=== PATIENT | male | born 1985 | race Hispanic/Latino ===

== ENCOUNTER 2019-08-03 16:58 | Emergency (ER) | payer SELFPAY ==
[2019-08-03 19:15] VITALS: BP 139/80
[2019-08-03] MEDS ORDERED: NORCO 5/325 PO ONE (19:47)
--- NOTE | 2019-08-03 19:47 | Emergency Department Report ---
ED ENT HPI - General Chief complaint: Dental/Oral Stated complaint: LFT SIDE TOOTHACHE/ABCESS PAIN Time Seen by Provider: 08/03/19 19:38 Source: patient Mode of arrival: Ambulatory Limitations: No Limitations - History of Present Illness Initial comments: This is a 34-year-old male who presents to the emergency room with dental pain on the left lower side #20 one day. Patient states he was having issues with teeth intermittently for the past year. He denies difficulty swallowing, sore throat, fever, or chills. MD complaint: tooth pain Onset/Timin -: days(s) Location: tooth # (20) Severity: severe Severity scale (0 -10): 10 Quality: constant, other (throbbing) Consistency: constant Improves with: none Worsens with: eating Context- Dental: history of dental caries, poor dental care Associated Symptoms: gum swelling, toothache. denies: fever, pain with swallowing, sore throat - Related Data Previous Rx's Medication Instructions Recorded Last Taken Type Amoxicillin [Trimox CAP] 500 mg PO BID #14 capsule 08/03/19 Unknown Rx Naproxen [Naprosyn] 500 mg PO TID PRN #20 tablet 08/03/19 Unknown Rx traMADol [Ultram 50 MG tab] 50 mg PO Q6HR PRN #10 tablet 08/03/19 Unknown Rx Allergies Allergy/AdvReac Type Severity Reaction Status Date / Time No Known Allergies Allergy Verified 08/03/19 17:00 ED Dental HPI - General Chief complaint: Dental/Oral Stated complaint: LFT SIDE TOOTHACHE/ABCESS PAIN Time Seen by Provider: 08/03/19 19:38 Source: patient Mode of arrival: Ambulatory Limitations: No Limitations - Related Data Previous Rx's Medication Instructions Recorded Last Taken Type Amoxicillin [Trimox CAP] 500 mg PO BID #14 capsule 08/03/19 Unknown Rx Naproxen [Naprosyn] 500 mg PO TID PRN #20 tablet 08/03/19 Unknown Rx traMADol [Ultram 50 MG tab] 50 mg PO Q6HR PRN #10 tablet 08/03/19 Unknown Rx Allergies Allergy/AdvReac Type Severity Reaction Status Date / Time No Known Allergies Allergy Verified 08/03/19 17:00 ED Review of Systems ROS: Stated complaint: LFT SIDE TOOTHACHE/ABCESS PAIN Other details as noted in HPI Constitutional: denies: chills, fever ENT: dental pain. denies: ear pain, throat pain Respiratory: denies: cough, shortness of breath, wheezing Cardiovascular: denies: chest pain, palpitations Gastrointestinal: denies: abdominal pain, nausea, diarrhea Skin: denies: rash, lesions Neurological: denies: headache, weakness, paresthesias Psychiatric: denies: anxiety, depression ED Past Medical Hx - Past Medical History Previous Medical History?: No Hx Psychiatric Treatment: Yes (bi-polar/anxiety/depression) - Surgical History Additional Surgical History: L shoulder surgery 2008 - Social History Smoking Status: Current Every Day Smoker Substance Use Type: None - Medications Home Medications: Home Medications Medication Instructions Recorded Confirmed Last Taken Type Amoxicillin [Trimox CAP] 500 mg PO BID #14 capsule 08/03/19 Unknown Rx Naproxen [Naprosyn] 500 mg PO TID PRN #20 tablet 08/03/19 Unknown Rx traMADol [Ultram 50 MG tab] 50 mg PO Q6HR PRN #10 tablet 08/03/19 Unknown Rx ED Physical Exam - General Limitations: No Limitations General appearance: alert, in no apparent distress - ENT ENT exam: Present: normal orophraynx, mucous membranes moist, other (#20 partial tooth with dark brown dental caries lateral tooth, gingival swelling, tenderness, ) - Neck Neck exam: Present: normal inspection. Absent: lymphadenopathy - Respiratory Respiratory exam: Present: normal lung sounds bilaterally. Absent: respiratory distress - Cardiovascular Cardiovascular Exam: Present: regular rate, normal rhythm. Absent: systolic murmur, diastolic murmur, rubs, gallop - Neurological Exam Neurological exam: Present: alert, oriented X3 - Psychiatric Psychiatric exam: Present: normal affect, normal mood - Skin Skin exam: Present: warm, dry, intact, normal color. Absent: rash ED Course Vital Signs 08/03/19 19:13 Temperature 98.5 F Pulse Rate 110 H Respiratory 18 Rate Blood Pressure 139/80 O2 Sat by Pulse 98 Oximetry ED Medical Decision Making - Medical Decision Making Patient is stable and was examined by me. Given norco once in ER. Susceptible of dental dental caries #20 with partial tooth present, mild gingival swelling, no signs of abscess or facial swelling. Start tramadol, amoxicillin, and Naprosyn. Discussed plan with patient. He agreed with ER plan. Discharged home stable. Follow up with dentist from referral list. Critical care attestation.: If time is entered above; I have spent that time in minutes in the direct care of this critically ill patient, excluding procedure time. ED Disposition Clinical Impression: Dental caries, Pain, dental Fracture of tooth Qualifiers: Encounter type: initial encounter Fracture type: closed Qualified Code(s): S02. 5XXA - Fracture of tooth (traumatic), initial encounter for closed fracture Disposition: TO HOME OR SELFCARE Is pt being admited?: No Condition: Stable Instructions: Dental Caries (ED), Toothache (ED) Additional Instructions: Complete all days of antibiotics as prescribed for 7 days. Follow up with Dentist from the list of provided in 24-72 hours. Prescriptions: Naproxen [Naprosyn] 500 mg PO TID PRN #20 tablet PRN Reason: Pain, Moderate (4-6) Amoxicillin [Trimox CAP] 500 mg PO BID #14 capsule traMADol [Ultram 50 MG tab] 50 mg PO Q6HR PRN #10 tablet PRN Reason: Pain Referrals: [facility] [Outside] - 3-5 Days [facility] [Outside] - 3-5 Days [facility] [Outside] - 3-5 Days Forms: Work/School Release Form(ED) Time of Disposition: 20:07
== END 2019-08-03 20:32 | disposition home or self-care (01) ==
LOC: ED 16:58
DX: S02.5XXA Fracture of tooth (traumatic), initial encounter for closed fracture (principal); K02.9 Dental caries, unspecified; F31.9 Bipolar disorder, unspecified; F17.200 Nicotine dependence, unspecified, uncomplicated; X58.XXXA Exposure to other specified factors, initial encounter; Y93.9 Activity, unspecified; Y92.89 Other specified places as the place of occurrence of the external cause; Y99.8 Other external cause status
CPT/HCPCS: 99282

== ENCOUNTER 2019-08-29 20:06 | Emergency (ER) | payer SELFPAY ==
[2019-08-29 20:40] VITALS: BP 127/71
--- NOTE | 2019-08-29 21:35 | Event Note ---
ED Screening Note Date of service: 08/29/19 Time: 21:34 ED Screening Note: 34 y/o male comes in for 3 days history of left lower leg swelling and pain with redness. This initial assessment/diagnostic orders/clinical plan/treatment(s) is/are subject to change based on patients health status, clinical progression and re- assessment by fellow clinical providers in the ED. Further treatment and workup at subsequent clinical providers discretion. Patient/guardian urged not to elope from the ED as their condition may be serious if not clinically assessed and managed. Initial orders include:
[2019-08-29] MEDS ORDERED: SODIUM CHLORIDE 0.9% 1000 ML 1,000 ML IV ONE (22:36)
[2019-08-29] MEDS ORDERED: MORPHINE 4 MG/1 ML INJ IV ONE (22:36)
[2019-08-29 23:13] LABS: Basophils % (Auto) 0.3 % (0.0-1.8); Eosinophils # (Auto) 0.1 K/mm3 (0.0-0.4); Eosinophils % (Auto) 1.4 % (0.0-4.3); Hematocrit 39.4 % (35.5-45.6); Hemoglobin 13.5 gm/dl (11.8-15.2); Lymphocytes # (Auto) 1.3 K/mm3 (1.2-5.4); Lymphocytes % (Auto) 12.6 % (13.4-35.0); Mean Corpuscular HGB Conc 34 % (32-34); Mean Corpuscular Volume 92 fl (84-94); Monocytes # (Auto) 1.6 K/mm3 (0.0-0.8); Monocytes % (Auto) 15.1 % (0.0-7.3); Platelet Count 237 K/mm3 (140-440); Red Blood Count 4.29 M/mm3 (3.65-5.03); Red Cell Distribution Width 13.9 % (13.2-15.2)
[2019-08-29] MEDS ORDERED: TETANUS,DIPH,PERTUSS(ACELL) VACCINE 0.5 ML SYRINGE IM ONE (23:25)
--- NOTE | 2019-08-29 23:32 | Emergency Department Report ---
- General Chief complaint: Extremity Problem,Nontraumatic Stated complaint: LEFT LEG PAIN Time Seen by Provider: 08/29/19 21:27 Source: patient Mode of arrival: Ambulatory Limitations: No Limitations - History of Present Illness Initial comments: This is a 34-year-old male nontoxic, well nourished in appearance, no acute signs of distress presents to the ED with c/o of redness and pain to the left lower leg. Patient stated that 3 days ago was bitten by something and redness and pain has increased since then. Patient denies any pus or drainage. Patient denies any fever, chills, nausea, vomiting, chest pain, shortness of breath, headache or stiff neck. Patient denies any allergies or significant past medical history. Denies being UTD with tetanus. MD complaint: insect bite/sting -: days(s) (3) Tetanus Up to Date: no Location: LLE Severity: mild Severity scale (0 -10): 8 Quality: aching Consistency: constant Improves with: none Worsens with: none Context: none Associated symptoms: denies other symptoms - Related Data Previous Rx's Medication Instructions Recorded Last Taken Type Amoxicillin [Trimox CAP] 500 mg PO BID #14 capsule 08/03/19 Unknown Rx Naproxen [Naprosyn] 500 mg PO TID PRN #20 tablet 08/03/19 Unknown Rx traMADoL [Ultram 50 MG tab] 50 mg PO Q6HR PRN #10 tablet 08/03/19 Unknown Rx Acetaminophen/Codeine [Tylenol 1 tab PO Q6H PRN #12 tab 08/30/19 Unknown Rx /Codeine # 3 tab] Clindamycin [Clindamycin CAP] 300 mg PO Q6H #28 capsule 08/30/19 Unknown Rx Allergies Allergy/AdvReac Type Severity Reaction Status Date / Time No Known Allergies Allergy Verified 08/03/19 17:00 Abscess Boil HPI - HPI Chief Complaint: Extremity Problem,Nontraumatic Stated Complaint: LEFT LEG PAIN Time Seen by Provider: 08/29/19 21:27 Home Medications: Previous Rx's Medication Instructions Recorded Last Taken Type Amoxicillin [Trimox CAP] 500 mg PO BID #14 capsule 08/03/19 Unknown Rx Naproxen [Naprosyn] 500 mg PO TID PRN #20 tablet 08/03/19 Unknown Rx traMADoL [Ultram 50 MG tab] 50 mg PO Q6HR PRN #10 tablet 08/03/19 Unknown Rx Acetaminophen/Codeine [Tylenol 1 tab PO Q6H PRN #12 tab 08/30/19 Unknown Rx /Codeine # 3 tab] Clindamycin [Clindamycin CAP] 300 mg PO Q6H #28 capsule 08/30/19 Unknown Rx Allergies/Adverse Reactions: Allergies Allergy/AdvReac Type Severity Reaction Status Date / Time No Known Allergies Allergy Verified 08/03/19 17:00 ED Review of Systems ROS: Stated complaint: LEFT LEG PAIN Other details as noted in HPI Constitutional: denies: chills, fever Eyes: denies: eye pain, eye discharge, vision change ENT: denies: ear pain, throat pain Respiratory: denies: cough, shortness of breath, wheezing Cardiovascular: denies: chest pain, palpitations Endocrine: no symptoms reported Gastrointestinal: denies: abdominal pain, nausea, diarrhea Genitourinary: denies: urgency, dysuria Musculoskeletal: denies: back pain, joint swelling, arthralgia Skin: denies: rash, lesions Neurological: denies: headache, weakness, paresthesias Psychiatric: denies: anxiety, depression Hematological/Lymphatic: denies: easy bleeding, easy bruising ED Past Medical Hx - Past Medical History Previous Medical History?: Yes Hx Psychiatric Treatment: Yes (bi-polar/anxiety/depression) - Surgical History Past Surgical History?: Yes Additional Surgical History: L shoulder surgery 2008 - Social History Smoking Status: Current Every Day Smoker Substance Use Type: Alcohol - Medications Home Medications: Home Medications Medication Instructions Recorded Confirmed Last Taken Type Amoxicillin [Trimox CAP] 500 mg PO BID #14 capsule 08/03/19 Unknown Rx Naproxen [Naprosyn] 500 mg PO TID PRN #20 tablet 08/03/19 Unknown Rx traMADoL [Ultram 50 MG tab] 50 mg PO Q6HR PRN #10 tablet 08/03/19 Unknown Rx Acetaminophen/Codeine [Tylenol 1 tab PO Q6H PRN #12 tab 08/30/19 Unknown Rx /Codeine # 3 tab] Clindamycin [Clindamycin CAP] 300 mg PO Q6H #28 capsule 08/30/19 Unknown Rx ED Physical Exam - General Limitations: No Limitations General appearance: alert, in no apparent distress - Head Head exam: Present: atraumatic, normocephalic - Neck Neck exam: Present: normal inspection, full ROM. Absent: tenderness, meningismus, lymphadenopathy - Extremities Exam Extremities exam: Present: normal inspection, full ROM, tenderness, normal capillary refill. Absent: joint swelling, calf tenderness - Expanded Lower Extremity Exam Left Hip exam: Present: normal inspection, full ROM. Absent: tenderness, swelling Upper Leg exam: Present: normal inspection, full ROM. Absent: tenderness, swelling Knee exam: Present: normal inspection, full ROM. Absent: tenderness, swelling Lower Leg exam: Present: normal inspection, full ROM, tenderness, swelling, erythema. Absent: abrasion, laceration, ecchymosis, deformity, crepidus, dislocation, palpable cord, Cady's sign Ankle exam: Present: normal inspection, full ROM. Absent: tenderness, swelling Foot/Toe exam: Present: normal inspection, full ROM. Absent: tenderness, swelling Neuro vascular tendon exam: Present: no vascular compromise Gait: Positive: observed and normal 1 - small puncture wound of unknown source 2 - Erythema with tenderness to touch and warm to touch - Back Exam Back exam: Present: normal inspection, full ROM. Absent: tenderness, CVA tenderness (R), CVA tenderness (L), muscle spasm, paraspinal tenderness, vertebral tenderness, rash noted - Neurological Exam Neurological exam: Present: alert, oriented X3, normal gait - Psychiatric Psychiatric exam: Present: normal affect, normal mood - Skin Skin exam: Present: warm, dry, intact, normal color. Absent: rash ED Course Vital Signs 08/29/19 20:38 Temperature 99.1 F Pulse Rate 94 H Respiratory 18 Rate Blood Pressure 127/71 [Right] O2 Sat by Pulse 94 Oximetry - Reevaluation(s) Reevaluation #1: 08/29/19 23:30 Patient is speaking in full sentences with no signs of distress noted. ED Medical Decision Making - Lab Data Result diagrams: 08/29/19 22:47 08/29/19 22:47 - Medical Decision Making This is a 34-year-old male that presents with cellulitis. Patient is stable and was examined by me. There is no induration, fluctuance. Labs are unremarkable. CT with contrast obtained and dictated by radiologist within normal limits. Patient is notified of the CT results with no questions noted by the patient. No signs of abscess formation. The area has been outlined with a permanent marker and patient was instructed to observe symptoms of increased redness or swelling and to return to the ER if this does occur. Patient received morphine, 1 L normal saline and clindamycin. Stated that a member will try patient home after discharge due to possible drowsiness. Patient did receive a tetanus booster in the ER. Patient was referred to Follow-up with a primary care doctor in 3-5 days or if symptoms worsen and continue return to emergency room as soon as possible. At time of discharge, the patient does not seem toxic or ill in appearance. No acute signs of distress noted. Patient agrees to discharge treatment plan of care. No further questions noted by the patient. Critical care attestation.: If time is entered above; I have spent that time in minutes in the direct care of this critically ill patient, excluding procedure time. ED Disposition Clinical Impression: Cellulitis Qualifiers: Site of cellulitis: extremity Site of cellulitis of extremity: lower extremity Laterality: left Qualified Code(s): L03.116 - Cellulitis of left lower limb Disposition: DC-01 TO HOME OR SELFCARE Is pt being admited?: No Does the pt Need Aspirin: No Condition: Stable Instructions: Cellulitis (ED), Acetaminophen/Codeine (By mouth) Additional Instructions: Follow-up with a primary care doctor in 3-5 days or if symptoms worsen and continue return to emergency room as soon as possible. Do not operate any machinery while taking Tylenol with codeine as this may cause drowsiness. Prescriptions: Clindamycin [Clindamycin CAP] 300 mg PO Q6H #28 capsule Acetaminophen/Codeine [Tylenol /Codeine # 3 tab] 1 tab PO Q6H PRN #12 tab PRN Reason: pain Referrals: PRIMARY MD SHREYAS [Primary Care Provider] - 3-5 Days TERESO BAHENA MD [Staff Physician] - 3-5 Days [facility] [Outside] - 3-5 Days [facility] [Outside] - 3-5 Days Forms: Work/School Release Form(ED)
[2019-08-29 23:34] LABS: BUN/Creatinine Ratio 24; Blood Urea Nitrogen 17 mg/dL (9-20); Calcium 9.1 mg/dL (8.4-10.2); Hemolysis Index 55
--- NOTE | 2019-08-30 01:16 | Cat Scan Report ---
CT lower extremity LT w con INDICATION: left leg redness and swelling. TECHNIQUE: All CT scans at this location are performed using the following dose modulation technique: Automated exposure control. CONTRAST: Omnipaque 300, 100 cc IV injection. COMPARISON: None available. FINDINGS: Negative for bony injury or destruction. There is soft tissue swelling greatest at the ankl e laterally. Negative for localized fluid collection or skin breakdown. IMPRESSION: Soft tissue edema left lower extremity greatest at the ankle. Negative for abscess or ost eomyelitis. Signer Name: Portillo Monsivais MD Signed: 08/30/2019 1:11 AM Workstation Name: [id number]
[2019-08-30] MEDS ORDERED: ACETAMINOPHEN W/CODEINE 300-30 MG TAB PO ONE (02:08)
[2019-08-30] MEDS ORDERED: ACETAMINOPHEN W/CODEINE 300-30 MG TAB ONE (02:10)
== END 2019-08-30 02:15 | disposition home or self-care (01) ==
LOC: ED 20:06
DX: L03.116 Cellulitis of left lower limb (principal); F31.9 Bipolar disorder, unspecified; F17.200 Nicotine dependence, unspecified, uncomplicated; F41.9 Anxiety disorder, unspecified
CPT/HCPCS: 36415; 73701; 80048; 85025; 90471; 90715; 96365; 96375; 99284; J2270; J7030; Q9967

== ENCOUNTER 2019-09-02 04:30 | Emergency (ER) | payer SELFPAY ==
[2019-09-02 04:38] VITALS: BP 146/82
[2019-09-02] MEDS ORDERED: IBUPROFEN 800 MG TAB PO ONE (08:19)
[2019-09-02] MEDS ORDERED: cephALEXin 500 MG CAP PO ONE (08:19)
[2019-09-02] MEDS ORDERED: SULFAMETHOXAZOLE/TRIMETHOPRIM 800/160MG DS TAB PO ONE (08:19)
--- NOTE | 2019-09-02 08:27 | Emergency Department Report ---
- General Chief complaint: Extremity Injury, Lower Stated complaint: LEFT FOOT PAIN Time Seen by Provider: 09/02/19 08:17 Source: patient Mode of arrival: Ambulatory Limitations: No Limitations - History of Present Illness Initial comments: Mr. Kathleen is a 34 yo male with hx of anxiety, depression, bipolar disorder who presents with left leg cellulitis. Recently evaluatied3 days ago for same. Unable to obtain the antibiotics. According to EMR prescribed Clindamycin and Tylenol #3. Has left leg redness swelling pain with abscess. MD complaint: abscess/boil -: Gradual, days(s) (4) Severity: moderate Quality: aching Consistency: constant Improves with: none Worsens with: none Context: recent illness, other (unable to afford antibiotics) Associated symptoms: denies other symptoms - Related Data Previous Rx's Medication Instructions Recorded Last Taken Type Amoxicillin [Trimox CAP] 500 mg PO BID #14 capsule 08/03/19 Unknown Rx Naproxen [Naprosyn] 500 mg PO TID PRN #20 tablet 08/03/19 Unknown Rx traMADoL [Ultram 50 MG tab] 50 mg PO Q6HR PRN #10 tablet 08/03/19 Unknown Rx Acetaminophen/Codeine [Tylenol 1 tab PO Q6H PRN #12 tab 08/30/19 Unknown Rx /Codeine # 3 tab] Clindamycin [Clindamycin CAP] 300 mg PO Q6H #28 capsule 08/30/19 Unknown Rx Sulfamethoxazole/Trimethoprim 1 each PO BID 10 Days #20 tablet 09/02/19 Unknown Rx [Bactrim DS TAB] cephALEXin [Keflex] 500 mg PO QID 10 Days #40 capsule 09/02/19 Unknown Rx Allergies Allergy/AdvReac Type Severity Reaction Status Date / Time No Known Allergies Allergy Verified 08/03/19 17:00 Abscess Boil HPI - HPI Chief Complaint: Extremity Injury, Lower Stated Complaint: LEFT FOOT PAIN Time Seen by Provider: 09/02/19 08:17 Home Medications: Previous Rx's Medication Instructions Recorded Last Taken Type Amoxicillin [Trimox CAP] 500 mg PO BID #14 capsule 08/03/19 Unknown Rx Naproxen [Naprosyn] 500 mg PO TID PRN #20 tablet 08/03/19 Unknown Rx traMADoL [Ultram 50 MG tab] 50 mg PO Q6HR PRN #10 tablet 08/03/19 Unknown Rx Acetaminophen/Codeine [Tylenol 1 tab PO Q6H PRN #12 tab 08/30/19 Unknown Rx /Codeine # 3 tab] Clindamycin [Clindamycin CAP] 300 mg PO Q6H #28 capsule 08/30/19 Unknown Rx Sulfamethoxazole/Trimethoprim 1 each PO BID 10 Days #20 tablet 09/02/19 Unknown Rx [Bactrim DS TAB] cephALEXin [Keflex] 500 mg PO QID 10 Days #40 capsule 09/02/19 Unknown Rx Allergies/Adverse Reactions: Allergies Allergy/AdvReac Type Severity Reaction Status Date / Time No Known Allergies Allergy Verified 08/03/19 17:00 ED Review of Systems ROS: Stated complaint: LEFT FOOT PAIN Other details as noted in HPI Constitutional: denies: fever, malaise Gastrointestinal: denies: abdominal pain, nausea Genitourinary: denies: as per HPI Skin: rash, lesions, change in color ED Past Medical Hx - Past Medical History Previous Medical History?: Yes Hx Psychiatric Treatment: Yes (bi-polar/anxiety/depression) - Surgical History Past Surgical History?: Yes Additional Surgical History: L shoulder surgery 2008 - Social History Smoking Status: Current Every Day Smoker Substance Use Type: Alcohol - Medications Home Medications: Home Medications Medication Instructions Recorded Confirmed Last Taken Type Amoxicillin [Trimox CAP] 500 mg PO BID #14 capsule 08/03/19 Unknown Rx Naproxen [Naprosyn] 500 mg PO TID PRN #20 tablet 08/03/19 Unknown Rx traMADoL [Ultram 50 MG tab] 50 mg PO Q6HR PRN #10 tablet 08/03/19 Unknown Rx Acetaminophen/Codeine [Tylenol 1 tab PO Q6H PRN #12 tab 08/30/19 Unknown Rx /Codeine # 3 tab] Clindamycin [Clindamycin CAP] 300 mg PO Q6H #28 capsule 08/30/19 Unknown Rx Sulfamethoxazole/Trimethoprim 1 each PO BID 10 Days #20 tablet 09/02/19 Unknown Rx [Bactrim DS TAB] cephALEXin [Keflex] 500 mg PO QID 10 Days #40 capsule 09/02/19 Unknown Rx ED Physical Exam - General Limitations: No Limitations General appearance: alert, appears intoxicated - Head Head exam: Present: atraumatic, normocephalic - Eye Eye exam: Present: normal appearance. Absent: scleral icterus, conjunctival injection - ENT ENT exam: Present: mucous membranes moist - Neck Neck exam: Present: normal inspection - Respiratory Respiratory exam: Absent: respiratory distress - Extremities Exam Extremities exam: Present: other (left lower leg 15 cm of erythema with central draining abscess which is flat without underlying fluctuance) - Neurological Exam Neurological exam: Present: alert, oriented X3 - Psychiatric Psychiatric exam: Present: normal affect, normal mood ED Course Vital Signs 09/02/19 04:36 Temperature 98.7 F Pulse Rate 119 H Respiratory 20 Rate Blood Pressure 146/82 O2 Sat by Pulse 100 Oximetry ED Medical Decision Making - Medical Decision Making Left leg cellulitis abscess: Changed prescription to affordable medications bactrim and keflex Critical care attestation.: If time is entered above; I have spent that time in minutes in the direct care of this critically ill patient, excluding procedure time. ED Disposition Clinical Impression: Cellulitis, Cellulitis and abscess of left leg Disposition: DC-01 TO HOME OR SELFCARE Is pt being admited?: No Does the pt Need Aspirin: No Condition: Stable Instructions: Cellulitis (ED), Abscess (ED) Prescriptions: Sulfamethoxazole/Trimethoprim [Bactrim DS TAB] 1 each PO BID 10 Days #20 tablet cephALEXin [Keflex] 500 mg PO QID 10 Days #40 capsule Referrals: [facility] [Outside] - 3-5 Days
== END 2019-09-02 08:40 | disposition home or self-care (01) ==
LOC: ED 04:30
DX: L03.116 Cellulitis of left lower limb (principal); L02.416 Cutaneous abscess of left lower limb; F31.9 Bipolar disorder, unspecified; F41.9 Anxiety disorder, unspecified; F17.200 Nicotine dependence, unspecified, uncomplicated; Z79.899 Other long term (current) drug therapy

== ENCOUNTER 2020-11-28 10:25 | Inpatient (IN) | payer OTHER ==
[2020-11-28] MEDS ORDERED: SODIUM CHLORIDE 0.9% 1000 ML 1,000 ML ONE (10:50)
[2020-11-28] MEDS ORDERED: SODIUM CHLORIDE 0.9% 1000 ML IV SOLN IV ONE (10:52)
[2020-11-28] MEDS ORDERED: cefTRIAXone/NS 2 GM/100 ML 2 GM/100 ML BAG IV ONE (10:53)
[2020-11-28] MEDS ORDERED: AZITHROMYCIN/NS 500 MG/250 ML 500 MG/250 ML BAG IV ONE (10:53)
--- NOTE | 2020-11-28 11:00 | Emergency Department Report ---
ED Altered Mental Status HPI - General Chief Complaint: Overdose Stated Complaint: OPIATES OD PUI?: No Time Seen by Provider: 11/28/20 10:49 Source: EMS Mode of arrival: Stretcher Limitations: Altered Mental Status - History of Present Illness Initial Comments: Chief complaint: Found down HPI: This is a 35-year-old male with history of bipolar disorder and generalized anxiety disorder who was found in a barn unresponsive. Patient became combative after he received naloxone per paramedics. He required 5 mg of Versed for se dation. Patient is drowsy lethargic sedated. He does answer questions. He is able to state his name. History obtained from electronic medical record. I unsuccessfully attempted to contact next of kin listed in the electronic medical record. MD Complaint: altered mental status, decreased responsiveness -: unknown Severity: severe Context: other (Previously documented alcohol abuse) - Related Data Previous Rx's Medication Instructions Recorded Last Taken Type Amoxicillin [Trimox CAP] 500 mg PO BID #14 capsule 08/03/19 Unknown Rx Naproxen [Naprosyn] 500 mg PO TID PRN #20 tablet 08/03/19 Unknown Rx traMADoL [Ultram 50 MG tab] 50 mg PO Q6HR PRN #10 tablet 08/03/19 Unknown Rx Acetaminophen/Codeine [Tylenol 1 tab PO Q6H PRN #12 tab 08/30/19 Unknown Rx /Codeine # 3 tab] Clindamycin [Clindamycin CAP] 300 mg PO Q6H #28 capsule 08/30/19 Unknown Rx Sulfamethoxazole/Trimethoprim 1 each PO BID 10 Days #20 tablet 09/02/19 Unknown Rx [Bactrim DS TAB] cephALEXin [Keflex] 500 mg PO QID 10 Days #40 capsule 09/02/19 Unknown Rx Allergies Allergy/AdvReac Type Severity Reaction Status Date / Time No Known Allergies Allergy Verified 08/03/19 17:00 ED Review of Systems ROS: Stated complaint: OPIATES OD Other details as noted in HPI Comment: Unobtainable due to pts medical conditions (Altered mental status, sedated) ED Past Medical Hx - Past Medical History Previous Medical History?: Yes Hx Psychiatric Treatment: Yes (bi-polar/anxiety/depression) - Surgical History Past Surgical History?: Yes Additional Surgical History: L shoulder surgery 2008 - Social History Smoking Status: Unknown if ever smoked Substance Use Type: Alcohol - Medications Home Medications: Home Medications Medication Instructions Recorded Confirmed Last Taken Type Amoxicillin [Trimox CAP] 500 mg PO BID #14 capsule 08/03/19 Unknown Rx Naproxen [Naprosyn] 500 mg PO TID PRN #20 tablet 08/03/19 Unknown Rx traMADoL [Ultram 50 MG tab] 50 mg PO Q6HR PRN #10 tablet 08/03/19 Unknown Rx Acetaminophen/Codeine [Tylenol 1 tab PO Q6H PRN #12 tab 08/30/19 Unknown Rx /Codeine # 3 tab] Clindamycin [Clindamycin CAP] 300 mg PO Q6H #28 capsule 08/30/19 Unknown Rx Sulfamethoxazole/Trimethoprim 1 each PO BID 10 Days #20 tablet 09/02/19 Unknown Rx [Bactrim DS TAB] cephALEXin [Keflex] 500 mg PO QID 10 Days #40 capsule 09/02/19 Unknown Rx ED Physical Exam - General Limitations: Altered Mental Status General appearance: lethargic, other (Attempting to answer questions unintelligibly slurred speech as if intoxicated) - Head Head exam: Present: atraumatic, normocephalic - Eye Eye exam: Present: normal appearance - ENT ENT exam: Present: mucous membranes moist - Neck Neck exam: Present: normal inspection, full ROM - Respiratory Respiratory exam: Present: normal lung sounds bilaterally. Absent: respiratory distress, wheezes, rales, rhonchi - Cardiovascular Cardiovascular Exam: Present: normal rhythm, tachycardia, normal heart sounds. Absent: systolic murmur, diastolic murmur, rubs, gallop - GI/Abdominal GI/Abdominal exam: Present: soft, normal bowel sounds. Absent: distended, t enderness, guarding, rebound - Rectal Rectal exam: Present: deferred - Extremities Exam Extremities exam: Present: normal inspection - Neurological Exam Neurological exam: Present: other (Oriented to name sedated) - Psychiatric Psychiatric exam: Present: depressed - Skin Skin exam: Present: dry, intact, normal color, other (Cool to touch). Absent: rash ED Course Vital Signs 11/28/20 10:51 Temperature 94.9 F L Pulse Rate 123 H Respiratory 15 Rate Blood Pressure 131/91 [Left] O2 Sat by Pulse 89 Oximetry - Reevaluation(s) Reevaluation #1: 11/28/20 12:01 I reassessed patient. Patient has persistent tachycardia. Patient is sleeping with his mouth closed. Nonrebreather in place. Oxygen saturation 97% - Lab Data Result diagrams: 11/28/20 11:12 11/28/20 12:33 Lab Results 11/28/20 11/28/20 11/28/20 Range/Units 11:12 11:12 11:12 WBC 14.9 H (4.5-11.0) K/mm3 RBC 4.74 (3.65-5.03) M/mm3 Hgb 14.9 (11.8-15.2) gm/dl Hct 43.9 (35.5-45.6) % MCV 93 (84-94) fl MCH 32 (28-32) pg MCHC 34 (32-34) % RDW 12.9 L (13.2-15.2) % Plt Count 306 (140-440) K/mm3 Lymph % (Auto) 6.3 L (13.4-35.0) % [place] % (Auto) 6.6 (0.0-7.3) % Eos % (Auto) 1.2 (0.0-4.3) % Baso % (Auto) 0.4 (0.0-1.8) % Lymph # (Auto) 0.9 L (1.2-5.4) K/mm3 [place] # (Auto) 1.0 H (0.0-0.8) K/mm3 Eos # (Auto) 0.2 (0.0-0.4) K/mm3 Baso # (Auto) 0.1 (0.0-0.1) K/mm3 Seg Neutrophils % 85.5 H (40.0-70.0) % Seg Neutrophils # 12.7 H (1.8-7.7) K/mm3 D-Dimer 1402.59 H (0-234) ng/mlDDU ABG pH (7.350-7.450) pH Units ABG pCO2 mm Hg ABG pO2 (80.0-90.0) mm Hg ABG HCO3 (20.0-26.0) mmol/L ABG O2 Saturation (95.0-99.0) % ABG O2 Content (0.0-44) ABG Base Excess (-2.0-3.0) mmol/L ABG Hemoglobin (14.0-18.0) gm/dl ABG Carboxyhemoglobin (0.0-5.0) % ABG Methemoglobin (0.0-1.5) % Oxyhemoglobin (95.0-99.0) % FiO2 % Sodium 141 (137-145) mmol/L Potassium 3.7 (3.6-5.0) mmol/L Chloride 108.0 H (98-107) mmol/L Carbon Dioxide 25 (22-30) mmol/L Anion Gap 12 mmol/L BUN 15 (9-20) mg/dL Creatinine 1.0 (0.8-1.3) mg/dL Estimated GFR > 60 ml/min BUN/Creatinine Ratio 15 % Glucose 161 H (75-100) mg/dL Lactic Acid (0.7-2.0) mmol/L Calcium 8.1 L (8.4-10.2) mg/dL Ferritin (30.0-300.0) ng/mL Total Bilirubin 0.40 (0.1-1.2) mg/dL AST 56 H (5-40) units/L ALT 73 H (7-56) units/L Alkaline Phosphatase 92 (35-129) units/L Lactate Dehydrogenase (91-180) units/L Total Creatine Kinase (55-170) units/L Troponin T < 0.010 (0.00-0.029) ng/mL C-Reactive Protein (0.00-1.30) mg/dL NT-Pro-B Natriuret Pep (0-450) pg/mL Total Protein 6.5 (6.3-8.2) g/dL Albumin 4.0 (3.9-5) g/dL Albumin/Globulin Ratio 1.6 % Salicylates (2.8-20.0) mg/dL Acetaminophen (10.0-30.0) ug/mL 11/28/20 11/28/20 11/28/20 Range/Units 11:12 11:12 11:12 WBC (4.5-11.0) K/mm3 RBC (3.65-5.03) M/mm3 Hgb (11.8-15.2) gm/dl Hct (35.5-45.6) % MCV (84-94) fl MCH (28-32) pg MCHC (32-34) % RDW (13.2-15.2) % Plt Count (140-440) K/mm3 Lymph % (Auto) (13.4-35.0) % Liberty % (Auto) (0.0-7.3) % Eos % (Auto) (0.0-4.3) % Baso % (Auto) (0.0-1.8) % Lymph # (Auto) (1.2-5.4) K/mm3 [place] # (Auto) (0.0-0.8) K/mm3 Eos # (Auto) (0.0-0.4) K/mm3 Baso # (Auto) (0.0-0.1) K/mm3 Seg Neutrophils % (40.0-70.0) % Seg Neutrophils # (1.8-7.7) K/mm3 D-Dimer (0-234) ng/mlDDU ABG pH (7.350-7.450) pH Units ABG pCO2 mm Hg ABG pO2 (80.0-90.0) mm Hg ABG HCO3 (20.0-26.0) mmol/L ABG O2 Saturation (95.0-99.0) % ABG O2 Content (0.0-44) ABG Base Excess (-2.0-3.0) mmol/L ABG Hemoglobin (14.0-18.0) gm/dl ABG Carboxyhemoglobin (0.0-5.0) % ABG Methemoglobin (0.0-1.5) % Oxyhemoglobin (95.0-99.0) % FiO2 % Sodium (137-145) mmol/L Potassium (3.6-5.0) mmol/L Chloride (98-107) mmol/L Carbon Dioxide (22-30) mmol/L Anion Gap mmol/L BUN (9-20) mg/dL Creatinine (0.8-1.3) mg/dL Estimated GFR ml/min BUN/Creatinine Ratio % Glucose (75-100) mg/dL Lactic Acid 2.00 (0.7-2.0) mmol/L Calcium (8.4-10.2) mg/dL Ferritin (30.0-300.0) ng/mL Total Bilirubin (0.1-1.2) mg/dL AST (5-40) units/L ALT (7-56) units/L Alkaline Phosphatase (35-129) units/L Lactate Dehydrogenase (91-180) units/L Total Creatine Kinase (55-170) units/L Troponin T (0.00-0.029) ng/mL C-Reactive Protein (0.00-1.30) mg/dL NT-Pro-B Natriuret Pep (0-450) pg/mL Total Protein (6.3-8.2) g/dL Albumin (3.9-5) g/dL Albumin/Globulin Ratio % Salicylates < 0.3 L (2.8-20.0) mg/dL Acetaminophen 5.0 L (10.0-30.0) ug/mL 11/28/20 11/28/20 11/28/20 Range/Units 11:12 12:11 12:33 WBC (4.5-11.0) K/mm3 RBC (3.65-5.03) M/mm3 Hgb (11.8-15.2) gm/dl Hct (35.5-45.6) % MCV (84-94) fl MCH (28-32) pg MCHC (32-34) % RDW (13.2-15.2) % Plt Count (140-440) K/mm3 Lymph % (Auto) (13.4-35.0) % Liberty % (Auto) (0.0-7.3) % Eos % (Auto) (0.0-4.3) % Baso % (Auto) (0.0-1.8) % Lymph # (Auto) (1.2-5.4) K/mm3 [place] # (Auto) (0.0-0.8) K/mm3 Eos # (Auto) (0.0-0.4) K/mm3 Baso # (Auto) (0.0-0.1) K/mm3 Seg Neutrophils % (40.0-70.0) % Seg Neutrophils # (1.8-7.7) K/mm3 D-Dimer 1275.29 H (0-234) ng/mlDDU ABG pH 7.275 L (7.350-7.450) pH Units ABG pCO2 47.7 mm Hg ABG pO2 52.9 L (80.0-90.0) mm Hg ABG HCO3 21.6 (20.0-26.0) mmol/L ABG O2 Saturation 84.5 L (95.0-99.0) % ABG O2 Content 17.7 (0.0-44) ABG Base Excess -5.4 L (-2.0-3.0) mmol/L ABG Hemoglobin 15.3 (14.0-18.0) gm/dl ABG Carboxyhemoglobin 1.4 (0.0-5.0) % ABG Methemoglobin 0.6 (0.0-1.5) % Oxyhemoglobin 82.8 L (95.0-99.0) % FiO2 21 % Sodium (137-145) mmol/L Potassium (3.6-5.0) mmol/L Chloride (98-107) mmol/L Carbon Dioxide (22-30) mmol/L Anion Gap mmol/L BUN (9-20) mg/dL Creatinine (0.8-1.3) mg/dL Estimated GFR ml/min BUN/Creatinine Ratio % Glucose (75-100) mg/dL Lactic Acid (0.7-2.0) mmol/L Calcium (8.4-10.2) mg/dL Ferritin (30.0-300.0) ng/mL Total Bilirubin (0.1-1.2) mg/dL AST (5-40) units/L ALT (7-56) units/L Alkaline Phosphatase (35-129) units/L Lactate Dehydrogenase (91-180) units/L Total Creatine Kinase 212 H (55-170) units/L Troponin T (0.00-0.029) ng/mL C-Reactive Protein (0.00-1.30) mg/dL NT-Pro-B Natriuret Pep 40.82 (0-450) pg/mL Total Protein (6.3-8.2) g/dL Albumin (3.9-5) g/dL Albumin/Globulin Ratio % Salicylates (2.8-20.0) mg/dL Acetaminophen (10.0-30.0) ug/mL 11/28/20 11/28/20 Range/Units 12:33 12:33 WBC (4.5-11.0) K/mm3 RBC (3.65-5.03) M/mm3 Hgb (11.8-15.2) gm/dl Hct (35.5-45.6) % MCV (84-94) fl MCH (28-32) pg MCHC (32-34) % RDW (13.2-15.2) % Plt Count (140-440) K/mm3 Lymph % (Auto) (13.4-35.0) % Liberty % (Auto) (0.0-7.3) % Eos % (Auto) (0.0-4.3) % Baso % (Auto) (0.0-1.8) % Lymph # (Auto) (1.2-5.4) K/mm3 Liberty # (Auto) (0.0-0.8) K/mm3 Eos # (Auto) (0.0-0.4) K/mm3 Baso # (Auto) (0.0-0.1) K/mm3 Seg Neutrophils % (40.0-70.0) % Seg Neutrophils # (1.8-7.7) K/mm3 D-Dimer (0-234) ng/mlDDU ABG pH (7.350-7.450) pH Units ABG pCO2 mm Hg ABG pO2 (80.0-90.0) mm Hg ABG HCO3 (20.0-26.0) mmol/L ABG O2 Saturation (95.0-99.0) % ABG O2 Content (0.0-44) ABG Base Excess (-2.0-3.0) mmol/L ABG Hemoglobin (14.0-18.0) gm/dl ABG Carboxyhemoglobin (0.0-5.0) % ABG Methemoglobin (0.0-1.5) % Oxyhemoglobin (95.0-99.0) % FiO2 % Sodium (137-145) mmol/L Potassium (3.6-5.0) mmol/L Chloride (98-107) mmol/L Carbon Dioxide (22-30) mmol/L Anion Gap mmol/L BUN (9-20) mg/dL Creatinine (0.8-1.3) mg/dL Estimated GFR ml/min BUN/Creatinine Ratio % Glucose 86 (75-100) mg/dL Lactic Acid (0.7-2.0) mmol/L Calcium (8.4-10.2) mg/dL Ferritin 67.6 (30.0-300.0) ng/mL Total Bilirubin (0.1-1.2) mg/dL AST (5-40) units/L ALT (7-56) units/L Alkaline Phosphatase (35-129) units/L Lactate Dehydrogenase 254 H (91-180) units/L Total Creatine Kinase (55-170) units/L Troponin T (0.00-0.029) ng/mL C-Reactive Protein 0.20 (0.00-1.30) mg/dL NT-Pro-B Natriuret Pep (0-450) pg/mL Total Protein (6.3-8.2) g/dL Albumin (3.9-5) g/dL Albumin/Globulin Ratio % Salicylates (2.8-20.0) mg/dL Acetaminophen (10.0-30.0) ug/mL - EKG Data -: EKG Interpreted by Wy EKG shows normal: sinus rhythm, axis, intervals, QRS complexes, ST-T waves Rate: tachycardia Interpretation: normal EKG 11/28/20 12:37 EKG obtained EKG interpreted by nc Normal sinus rhythm rate 145 bpm normal axis normal intervals no ST elevation no ST-T signs of ischemia normal EKG - Radiology Data Radiology results: report reviewed, image reviewed CHEST 1 VIEW 11/28/2020 11:30 AM INDICATION / CLINICAL INFORMATION: hypoxia overdose tachycardia. COMPARISON: 01/31/2009 FINDINGS: SUPPORT DEVICES: None. HEART / MEDIASTINUM: No significant abnormality. LUNGS / PLEURA: Patchy and confluent pulmonary opacities, greater on the right. No pneumothorax. ADDITIONAL FINDINGS: No significant additional findings. IMPRESSION: 1. Moderate pulmonary airspace disease, greater on the right. Differential diagnostic considerations include aspiration, multifocal pneumonia, or pulmonary edema. Recommend clinical correlation and continued follow-up until resolution. CTA CHEST WITH CONTRAST INDICATION / CLINICAL INFORMATION: dyspnea, hypoxia, elevated d-dimer. TECHNIQUE: Axial CT images were obtained through the chest after injection of 100 cc of Omnipaque 350 IV contrast. 3 plane MIP and/or 3D reconstructions were produced. All CT scans at this location are performed using CT dose reduction for ALARA by means of automated exposure control. COMPARISON: CT scan dated 09/05/2014 FINDINGS: PULMONARY ARTERIES: No pulmonary emboli. THORACIC AORTA: No significant abnormality. HEART: No significant abnormality. CORONARY ARTERY CALCIFICATION: None. MEDIASTINUM / GARTH: No significant abnormality. PLEURA: No pleural effusion. No pneumothorax. LUNGS: There is bilateral airspace consolidation. The lower lobes, right upper lobe with some mild airspace opacity in the lingula and right middle lobe. ADDITIONAL FINDINGS: None. UPPER ABDOMEN: No acute findings. SKELETAL STRUCTURES: No significant osseous abnormality. IMPRESSION: 1. No CT evidence for pulmonary embolism. 2. There are extensive bilateral airspace opacities which could represent pneumonia, edema, or aspiratio - Medical Decision Making 1. Acute respiratory failure hypoxia with findings of multifocal infiltrate. Differential diagnosis includes atypical pneumonia COVID-19, naloxone induced pulmonary edema, aspiration pneumonitis. CTA negative for VTE. Initially upon arrival patient required nonrebreather for oxygenation. He is now tolerating n ada cannula maintaining oxygen saturation after recovering from sedation. 2. Accidental overdose due to polysubstance abuse. Patient admitted to Ambien use.: Urine toxicology screen positive for benzodiazepine which could be explained by Versed administered for sedation. Marijuana positive, opiate positive, amphetamine positive. Critical Care Time: Yes Critical care time in (mins) excluding proc time.: 40 Critical care attestation.: If time is entered above; I have spent that time in minutes in the direct care of this critically ill patient, excluding procedure time. 40 minutes of critical care time excluding procedures were used in the care of the patient. I came immediately to the bedside upon patient's arrival. I discussed treatment plan with the nursing team members. I reviewed electronic record. I attempted to contact next of kin. I was unable to attend to other patients during patient's initial resuscitation. I was concerned for hypoxia and airway compromise. Patient's oxygen saturation 69% on room air. Patient required multiple interventions and reassessments. ED Disposition Clinical Impression: Acute respiratory failure, Accidental overdose, Aspiration pneumonitis, Atypical pneumonia, Suspected COVID-19 virus infection, Pulmonary edema, noncardiac, Adverse effect of naloxone Disposition: OP ADMIT IP TO THIS HOSP Is pt being admited?: Yes Does the pt Need Aspirin: No Condition: Stable
[2020-11-28 11:28] LABS: Basophils # (Auto) 0.1 K/mm3 (0.0-0.1); Basophils % (Auto) 0.4 % (0.0-1.8); Eosinophils # (Auto) 0.2 K/mm3 (0.0-0.4); Eosinophils % (Auto) 1.2 % (0.0-4.3); Hematocrit 43.9 % (35.5-45.6); Hemoglobin 14.9 gm/dl (11.8-15.2); Lymphocytes # (Auto) 0.9 K/mm3 (1.2-5.4); Lymphocytes % (Auto) 6.3 % (13.4-35.0); Mean Corpuscular HGB Conc 34 % (32-34); Mean Corpuscular Volume 93 fl (84-94); Monocytes % (Auto) 6.6 % (0.0-7.3); Platelet Count 306 K/mm3 (140-440); Red Blood Count 4.74 M/mm3 (3.65-5.03); Red Cell Distribution Width 12.9 % (13.2-15.2)
--- NOTE | 2020-11-28 11:52 | XRay Report ---
CHEST 1 VIEW 11/28/2020 11:30 AM INDICATION / CLINICAL INFORMATION: hypoxia overdose tachycardia. COMPARISON: 01/31/2009 FINDINGS: SUPPORT DEVICES: None. HEART / MEDIASTINUM: No significant abnormality. LUNGS / PLEURA: Patchy and confluent pulmonary opacities, greater on the right. No pneumothorax. ADDITIONAL FINDINGS: No significant additional findings. IMPRESSION: 1. Moderate pulmonary airspace disease, greater on the right. Differential diagnostic considerations include aspiration, multifocal pneumonia, or pulmonary edema. Recommend clinical correlation and cont inued follow-up until resolution. Signer Name: Alexx Holman MD Signed: 11/28/2020 11:47 AM Workstation Name: [id number]
[2020-11-28 11:53] LABS: Alanine Aminotransferase 73 units/L (7-56); BUN/Creatinine Ratio 15; Blood Urea Nitrogen 15 mg/dL (9-20); Calcium 8.1 mg/dL (8.4-10.2); Hemolysis Index 5
[2020-11-28 13:13] LABS: C-Reactive Protein 0.2 mg/dL (0.00-1.30)
[2020-11-28 13:53] LABS: ABG Base Excess -5.4 mmol/L (-2.0-3.0); ABG HCO3 21.6 mmol/L (20.0-26.0); ABG Methemoglobin 0.6 % (0.0-1.5); ABG Oxygen Saturation 84.5 % (95.0-99.0); ABG PCO2 47.7 mm Hg; ABG PH 7.275 pH Units (7.350-7.450); ABG PO2 52.9 mm Hg (80.0-90.0)
--- NOTE | 2020-11-28 14:16 | History and Physical Report ---
History of Present Illness Chief complaint: Unresponsive History of present illness: 35 YO Male with Bipolar Disorder, VINNY, ETOH Dependence,Nicotine Dependence, PSA, Depression presents to ED for evaluation. Pt is confused and lethargic and unable to provide history. Pt history taken from EMS as well as ED staff. As per staff, the patient was found and unresponsive [place] barn [place] property. EMS was notified and upon arrival the patient was found to be in distress. Patient became combative and was treated with naloxone and subsequently transported to [facility] for further care and evaluation. The patient was seen and evaluated emergency department. All lab and imaging studies reviewed. The patient was found to have a pulse oximetry of 86% on room air which is consistent with acute hypoxemic respiratory failure. The patient was also found to have sepsis suspected secondary to pneumonia, as well as toxic metabolic encephalopathy. Patient admitted to medical floor and initiated on sepsis protocol as well as pneumonia protocol. Patient also initiated on coronavirus protocol. Patient confused and lethargic the time my evaluation but has a positive gag reflex and is able to protect his airway without difficulty. Prior admission on 09/05/2014 reviewed. No medication listed at time of admission for reconciliation. Past History Past Medical History: other (See HPI) Past Surgical History: Other (Left shoulder surgery) Social history: single, smoking, alcohol abuse, other (Polysubstance abuse) Family history: no significant family history (Reviewed) Medications and Allergies Allergies Allergy/AdvReac Type Severity Reaction Status Date / Time No Known Allergies Allergy Verified 08/03/19 17:00 Home Medications Medication Instructions Recorded Confirmed Last Taken Type Amoxicillin [Trimox CAP] 500 mg PO BID #14 capsule 08/03/19 Unknown Rx Naproxen [Naprosyn] 500 mg PO TID PRN #20 tablet 08/03/19 Unknown Rx traMADoL [Ultram 50 MG tab] 50 mg PO Q6HR PRN #10 tablet 08/03/19 Unknown Rx Acetaminophen/Codeine [Tylenol 1 tab PO Q6H PRN #12 tab 08/30/19 Unknown Rx /Codeine # 3 tab] Clindamycin [Clindamycin CAP] 300 mg PO Q6H #28 capsule 08/30/19 Unknown Rx Sulfamethoxazole/Trimethoprim 1 each PO BID 10 Days #20 tablet 09/02/19 Unknown Rx [Bactrim DS TAB] cephALEXin [Keflex] 500 mg PO QID 10 Days #40 capsule 09/02/19 Unknown Rx Review of Systems ROS unobtainable: due to mental status Exam - Constitutional Vitals: Temp Pulse Resp BP Pulse Ox 94.9 F L 123 H 15 131/91 89 11/28/20 10:51 11/28/20 10:51 11/28/20 10:51 11/28/20 10:51 11/28/20 10:51 General appearance: Present: mild distress, obese - EENT Eyes: Present: PERRL ENT: hearing intact, clear oral mucosa - Neck Neck: Present: supple, normal ROM - Respiratory Respiratory effort: normal, labored, accessory muscle use Respiratory: bilateral: diminished, rhonchi - Cardiovascular Heart Sounds: Present: S1 & S2. Absent: rub, click - Extremities Extremities: pulses symmetrical, No edema Peripheral Pulses: abnormal (Capillary refill greater than 3.5 seconds) - Abdominal General gastrointestinal: Present: soft, non-tender, non-distended, normal bowel sounds Male genitourinary: Present: normal - Integumentary Integumentary: Present: clear, warm, dry - Musculoskeletal Musculoskeletal: gait normal, strength equal bilaterally - Psychiatric Psychiatric: appropriate mood/affect, intact judgment & insight - Neurologic Neurologic: CNII-XII intact, moves all extremities HEART Score - HEART Score Troponin: Troponin T < 0.010 ng/mL (0.00-0.029) 11/28/20 11:12 Results - Labs CBC & Chem 7: 11/28/20 11:12 11/28/20 12:33 Labs: Abnormal lab results 11/28/20 11/28/20 11/28/20 Range/Units 11:12 11:12 11:12 WBC 14.9 H (4.5-11.0) K/mm3 RDW 12.9 L (13.2-15.2) % Lymph % (Auto) 6.3 L (13.4-35.0) % Lymph # (Auto) 0.9 L (1.2-5.4) K/mm3 [place] # (Auto) 1.0 H (0.0-0.8) K/mm3 Seg Neutrophils % 85.5 H (40.0-70.0) % Seg Neutrophils # 12.7 H (1.8-7.7) K/mm3 D-Dimer 1402.59 H (0-234) ng/mlDDU Chloride 108.0 H (98-107) mmol/L Glucose 161 H (75-100) mg/dL Calcium 8.1 L (8.4-10.2) mg/dL AST 56 H (5-40) units/L ALT 73 H (7-56) units/L Lactate Dehydrogenase (91-180) units/L Total Creatine Kinase (55-170) units/L Salicylates (2.8-20.0) mg/dL Acetaminophen (10.0-30.0) ug/mL 11/28/20 11/28/20 11/28/20 Range/Units 11:12 11:12 11:12 WBC (4.5-11.0) K/mm3 RDW (13.2-15.2) % Lymph % (Auto) (13.4-35.0) % Lymph # (Auto) (1.2-5.4) K/mm3 [place] # (Auto) (0.0-0.8) K/mm3 Seg Neutrophils % (40.0-70.0) % Seg Neutrophils # (1.8-7.7) K/mm3 D-Dimer (0-234) ng/mlDDU Chloride (98-107) mmol/L Glucose (75-100) mg/dL Calcium (8.4-10.2) mg/dL AST (5-40) units/L ALT (7-56) units/L Lactate Dehydrogenase (91-180) units/L Total Creatine Kinase 212 H (55-170) units/L Salicylates < 0.3 L (2.8-20.0) mg/dL Acetaminophen 5.0 L (10.0-30.0) ug/mL 11/28/20 11/28/20 Range/Units 12:33 12:33 WBC (4.5-11.0) K/mm3 RDW (13.2-15.2) % Lymph % (Auto) (13.4-35.0) % Lymph # (Auto) (1.2-5.4) K/mm3 [place] # (Auto) (0.0-0.8) K/mm3 Seg Neutrophils % (40.0-70.0) % Seg Neutrophils # (1.8-7.7) K/mm3 D-Dimer 1275.29 H (0-234) ng/mlDDU Chloride (98-107) mmol/L Glucose (75-100) mg/dL Calcium (8.4-10.2) mg/dL AST (5-40) units/L ALT (7-56) units/L Lactate Dehydrogenase 254 H (91-180) units/L Total Creatine Kinase (55-170) units/L Salicylates (2.8-20.0) mg/dL Acetaminophen (10.0-30.0) ug/mL Assessment and Plan - Patient Problems (1) Sepsis Current Visit: Yes Status: Acute Plan to address problem: Sepsis protocol: Chest x-ray, CBC, BMP, urinalysis, IV antibiotic therapy, IV fluid resuscitation therapy, serial lactic acid level, blood culture. Maintain mean arterial pressure greater than or equal to 65 (2) Acute respiratory failure Current Visit: Yes Status: Acute Qualifiers: Respiratory failure complication: hypoxia Qualified Code(s): J96.01 - Acute respiratory failure with hypoxia Plan to address problem: Supplemental oxygen, pulse oximetry, nebulizer therapy, chest x-ray, CT scan chest, pulmonary toilet. (3) Toxic metabolic encephalopathy Current Visit: Yes Status: Acute Plan to address problem: Supportive care, treat sepsis, supportive care, seizure precautions, aspiration precautions, fall precautions. (4) Pneumonia Current Visit: Yes Status: Acute Plan to address problem: Pneumonia protocol: Chest x-ray, CBC, CMP, IV antibiotic therapy, nebulizer therapy, pulse oximetry, noninvasive positive pressure ventilation as clinically indicated. (5) Alcohol dependence Current Visit: Yes Status: Acute Qualifiers: Substance use status: uncomplicated Qualified Code(s): F10.20 - Alcohol dependence, uncomplicated Plan to address problem: CIWA protocol, banana bag, IV fluid resuscitation therapy, supportive care. (6) Nicotine dependence Current Visit: Yes Status: Acute Qualifiers: Nicotine product type: cigarettes Substance use status: in withdrawal Qualified Code(s): F17.213 - Nicotine dependence, cigarettes, with withdrawal Plan to address problem: Smoking cessation, behavior change counseling, supportive care. +15 minutes. (7) Polysubstance abuse Current Visit: Yes Status: Acute Plan to address problem: Outpatient substance dependence follow-up, supportive care. (8) Suspected COVID-19 virus infection Current Visit: Yes Status: Acute Plan to address problem: Coronavirus protocol: Contact precautions, isolation precautions, IV antibiotic therapy, IV steroid therapy, supplemental oxygen, pulse oximetry, prone positioning while in bed (9) DVT prophylaxis Current Visit: Yes Status: Acute Plan to address problem: SCD to bilateral lower extremities while in bed, prophylactic anticoagulation.
[2020-11-28] MEDS ORDERED: ALBUTEROL 2.5 MG/3 ML NEBU IH PRN (14:17)
[2020-11-28] MEDS ORDERED: ACETAMINOPHEN 325 MG TAB PO PRN ×2 (14:17)
[2020-11-28] MEDS ORDERED: ONDANSETRON 4 MG/2 ML INJ IV PRN (14:17)
[2020-11-28] MEDS: HYDROmorphone 1 MG/1 ML INJ IV PRN ×2 (14:45→22:10)
[2020-11-28 14:57] LABS: Bilirubin,Urine NEG (Negative); Blood,Urine NEG (Negative); Color,Urine Yellow (Yellow); Protein,Urine <15 mg/dL mg/dL (Negative); Urobilinogen,Urine < 2.0 mg/dL (<2.0)
[2020-11-28 15:01] LABS: Cocaine Screen,Urine Negative; Methadone Screen,Urine Negative
--- NOTE | 2020-11-28 15:11 | Cat Scan Report ---
CTA CHEST WITH CONTRAST INDICATION / CLINICAL INFORMATION: dyspnea, hypoxia, elevated d-dimer. TECHNIQUE: Axial CT images were obtained through the chest after injection of 100 cc of Omnipaque 350 IV contrast. 3 plane MIP and/or 3D reconstructions were produced. All CT scans at this location are performed using CT dose reduction for ALARA by means of automated exposure control. COMPARISON: CT scan dated 09/05/2014 FINDINGS: PULMONARY ARTERIES: No pulmonary emboli. THORACIC AORTA: No significant abnormality. HEART: No significant abnormality. CORONARY ARTERY CALCIFICATION: None. MEDIASTINUM / GARTH: No significant abnormality. PLEURA: No pleural effusion. No pneumothorax. LUNGS: There is bilateral airspace consolidation. The lower lobes, right upper lobe with some mild ai rspace opacity in the lingula and right middle lobe. ADDITIONAL FINDINGS: None. UPPER ABDOMEN: No acute findings. SKELETAL STRUCTURES: No significant osseous abnormality. IMPRESSION: 1. No CT evidence for pulmonary embolism. 2. There are extensive bilateral airspace opacities which could represent pneumonia, edema, or aspira tion. Signer Name: Tanner Daigle MD Signed: 11/28/2020 3:06 PM Workstation Name: [id number]
[2020-11-28 15:31] LABS: Amphetamine Screen,Urine Positive; Benzodiazepines Screen,Urine Positive; Cannabinoid Screen,Urine Positive; Opiate Screen,Urine Positive
[2020-11-28] MEDS ORDERED: LORazepam 2 MG/ML VIAL IV PRN (20:38)
[2020-11-28] MEDS ORDERED: 1: FOLIC ACID 1 MG, MULTIPLE VITAMIN INJ, ADULT 10 ML, THIAMINE 100 MG in SODIUM CHLORID IV SCH (21:00)
[2020-11-28] MEDS ORDERED: HEPARIN 5,000 UNIT/1 ML VIAL SUB-Q SCH (22:00)
[2020-11-28] MEDS ORDERED: MULTIPLE VITAMIN INJ, ADULT 10 ML, THIAMINE 100 MG, FOLIC ACID 1 MG in SODIUM CHLORIDE ... IV SCH (22:00)
[2020-11-29] MEDS: HEPARIN 5,000 UNIT/1 ML VIAL SUB-Q SCH ×3 (00:09→22:06)
[2020-11-29] MEDS: methylPREDNISolone Sod Succinate 40 MG/1 ML INJ IV SCH ×4 (00:11→22:06)
[2020-11-29] MEDS ORDERED: SODIUM CHLORIDE 0.9% 1000 ML 1,000 ML IV SCH (04:00)
[2020-11-29 07:22] LABS: Hematocrit 38.8 % (35.5-45.6); Mean Corpuscular HGB Conc 34 % (32-34); Mean Corpuscular Volume 91 fl (84-94); Platelet Count 276 K/mm3 (140-440); Red Blood Count 4.24 M/mm3 (3.65-5.03)
[2020-11-29 07:37] LABS: Blood Urea Nitrogen 13 mg/dL (9-20); Calcium 8.4 mg/dL (8.4-10.2); Hemolysis Index 3
[2020-11-29 08:01] LABS: BUN/Creatinine Ratio 19
[2020-11-29] MEDS ORDERED: cefTRIAXone/NS 2 GM/100 ML 2 GM/100 ML BAG IV SCH (10:00)
[2020-11-29] MEDS ORDERED: AZITHROMYCIN/NS 500 MG/250 ML 500 MG/250 ML BAG IV SCH (12:00)
[2020-11-29 13:05] LABS: Platelet Estimate Consistent w Auto; RBC Morphology Normal; Total Cells Counted 100
[2020-11-29] MEDS ORDERED: MULTIPLE VITAMIN INJ, ADULT 10 ML, THIAMINE 100 MG, FOLIC ACID 1 MG in SODIUM CHLORIDE ... IV NR (14:00)
[2020-11-29 19:00] VITALS: BP 132/81
--- NOTE | 2020-11-29 19:07 | Progress Note ---
Assessment and Plan Assessment and Plan - Patient Problems (1) Sepsis Current Visit: Yes Status: Acute Plan to address problem: Cont Iv abx (2) Acute respiratory failure Current Visit: Yes Status: Acute Qualifiers: Respiratory failure complication: hypoxia Qualified Code(s): J96.01 - Acute respiratory failure with hypoxia Plan to address problem: Improved On Room air (3) Toxic metabolic encephalopathy Current Visit: Yes Status: Acute Plan to address problem: Improved (4) Pneumonia Current Visit: Yes Status: Acute Plan to address problem: Cont iv abx (5) Alcohol dependence Current Visit: Yes Status: Acute Qualifiers: Substance use status: uncomplicated Qualified Code(s): F10.20 - Alcohol dependence, uncomplicated Plan to address problem: CIWA protocol, banana bag, IV fluid resuscitation therapy, supportive care. (6) Nicotine dependence Current Visit: Yes Status: Acute Qualifiers: Nicotine product type: cigarettes Substance use status: in withdrawal Qualified Code(s): F17.213 - Nicotine dependence, cigarettes, with withdrawal Plan to address problem: Smoking cessation, behavior change counseling, supportive care. +15 minutes. (7) Polysubstance abuse Current Visit: Yes Status: Acute Plan to address problem: Outpatient substance dependence follow-up, supportive care. (8) Suspected COVID-19 virus infection Current Visit: Yes Status: Acute Plan to address problem: Covid pcr negative Transfer to regular floor (9) DVT prophylaxis Current Visit: Yes Status: Acute Plan to address problem: SCD to bilateral lower extremities while in bed, prophylactic anticoagulation. Subjective Date of service: 11/29/20 Principal diagnosis: Encephlopathy Interval history: 35 YO Male with Bipolar Disorder, VINNY, ETOH Dependence,Nicotine Dependence, PSA, Depression presents to ED for evaluation. Pt is confused and lethargic and unable to provide history. Pt history taken from EMS as well as ED staff. As per staff, the patient was found and unresponsive [place] property. EMS was notified and upon arrival the patient was found to be in distress. Patient became combative and was treated with naloxone and subsequently transported to [facility] for further care and evaluation. The patient was seen and evaluated emergency department. All lab and imaging studies reviewed. The patient was found to have a pulse oximetry of 86% on room air which is consistent with acute hypoxemic respiratory failure. The patient was also found to have sepsis suspected secondary to pneumonia, as well as toxic metabolic encephalopathy. Patient admitted to medical floor and initiated on sepsis protocol as well as pneumonia protocol. Patient also initiated on coronavirus protocol. Patient confused and lethargic the time my evaluation but has a positive gag reflex and is able to protect his airway without difficulty. Prior admission on 09/05/2014 reviewed. No medication listed at time of admission for reconciliation. 11/29/20 More alert and responsive Holden virus pcr negative Objective - Constitutional Vitals: Vital Signs - 12hr 11/29/20 17:14 Temperature 98.6 F Pulse Rate 103 H Respiratory 19 Rate Blood Pressure 132/81 O2 Sat by Pulse 97 Oximetry General appearance: Present: no acute distress, well-nourished - EENT Eyes: PERRL, EOM intact ENT: hearing intact, clear oral mucosa Ears: bilateral: normal - Neck Neck: supple, normal ROM - Respiratory Respiratory effort: normal Respiratory: bilateral: CTA, rhonchi - Breasts Breasts: normal - Cardiovascular Heart rate: 88 Rhythm: regular Heart Sounds: Present: S1 & S2. Absent: gallop, rub Extremities: pulses intact, No edema, normal color, Full ROM - Gastrointestinal General gastrointestinal: Present: soft, non-tender, non-distended, normal bowel sounds - Genitourinary Male genitourinary: normal - Integumentary Integumentary: clear, warm, dry - Musculoskeletal Musculoskeletal: 1, strength equal bilaterally - Neurologic Neurologic: moves all extremities - Psychiatric Psychiatric: memory intact, appropriate mood/affect, intact judgment & insight - Allied health notes Allied health notes reviewed: nursing, case management - Labs CBC & Chem 7: 11/29/20 06:59 11/29/20 06:59 Labs: Abnormal lab results 11/29/20 11/29/20 Range/Units 06:59 06:59 WBC 14.3 H (4.5-11.0) K/mm3 RDW 13.0 L (13.2-15.2) % Seg Neuts % (Manual) 92.0 H (40.0-70.0) % Lymphocytes % (Manual) 7.0 L (13.4-35.0) % Seg Neutrophils # Man 13.2 H (1.8-7.7) K/mm3 Lymphocytes # (Manual) 1.0 L (1.2-5.4) K/mm3 Creatinine 0.7 L (0.8-1.3) mg/dL Glucose 171 H (75-100) mg/dL HEART Score - HEART Score Troponin: Troponin T < 0.010 ng/mL (0.00-0.029) 11/28/20 11:12
[2020-11-30] MEDS ORDERED: FOLIC ACID 1 MG TAB PO SCH (10:00)
[2020-11-30] MEDS ORDERED: THIAMINE 100 MG TAB PO SCH (10:00)
[2020-11-30] MEDS ORDERED: MULTIVITAMINS 5 ML ORAL LIQUID PO SCH (10:00)
--- NOTE | 2020-11-30 10:05 | Discharge Summary ---
Providers - Providers Date of Admission: 11/28/20 14:17 Date of discharge: 11/30/20 Attending physician: SEVERINO EASTON Primary care physician: [employer] Hospitalization Condition: Stable Hospital course: Subjective Date of service: 11/29/20 Principal diagnosis: Encephlopathy Interval history: 35 YO Male with Bipolar Disorder, VINNY, ETOH Dependence,Nicotine Dependence, PSA, Depression presents to ED for evaluation. Pt is confused and lethargic and unable to provide history. Pt history taken from EMS as well as ED staff. As per staff, the patient was found and unresponsive [place] barn [place] private property. EMS was notified and upon arrival the patient was found to be in distress. Patient became combative and was treated with naloxone and subsequently transported to [facility] for further care and evaluation. The patient was seen and evaluated emergency department. All lab and imaging studies reviewed. The patient was found to have a pulse oximetry of 86% on room air which is consistent with acute hypoxemic respiratory failure. The patient was also found to have sepsis suspected secondary to pneumonia, as well as toxic metabolic encephalopathy. Patient admitted to medical floor and initiated on sepsis protocol as well as pneumonia protocol. Patient also initiated on coronavirus protocol. Patient confused and lethargic the time my evaluation but has a positive gag reflex and is able to protect his airway without difficulty. Prior admission on 09/05/2014 reviewed. No medication listed at time of admission for reconciliation. 11/29/20 More alert and responsive Holden virus pcr negative Left AmA Assessment and Plan - Patient Problems (1) Sepsis Current Visit: Yes Status: Acute Plan to address problem: Cont Iv abx (2) Acute respiratory failure Current Visit: Yes Status: Acute Qualifiers: Respiratory failure complication: hypoxia Qualified Code(s): J96.01 - Acute respiratory failure with hypoxia Plan to address problem: Improved On Room air (3) Toxic metabolic encephalopathy Current Visit: Yes Status: Acute Plan to address problem: Improved (4) Pneumonia Current Visit: Yes Status: Acute Plan to address problem: Cont iv abx (5) Alcohol dependence Current Visit: Yes Status: Acute Qualifiers: Substance use status: uncomplicated Qualified Code(s): F10.20 - Alcohol dependence, uncomplicated Plan to address problem: CIWA protocol, banana bag, IV fluid resuscitation therapy, supportive care. (6) Nicotine dependence Current Visit: Yes Status: Acute Qualifiers: Nicotine product type: cigarettes Substance use status: in withdrawal Qualified Code(s): F17.213 - Nicotine dependence, cigarettes, with withdrawal Plan to address problem: Smoking cessation, behavior change counseling, supportive care. +15 minutes. (7) Polysubstance abuse Current Visit: Yes Status: Acute Plan to address problem: Outpatient substance dependence follow-up, supportive care. (8) Suspected COVID-19 virus infection Current Visit: Yes Status: Acute Plan to address problem: Covid pcr negative Transfer to regular floor (9) DVT prophylaxis Current Visit: Yes Status: Acute Plan to address problem: SCD to bilateral lower extremities while in bed, prophylactic anticoagulation. Disposition: [id number] LEFT AGAINST MED ADVICE - Discharge Diagnoses (1) Suspected COVID-19 virus infection Status: Acute Comment: Covid PCR ruled out (2) Toxic metabolic encephalopathy Status: Acute Comment: Improved probably secondary to methamphetamine abuse Core Measure Documentation - Palliative Care Palliative Care/ Comfort Measures: Not Applicable - Core Measures Any of the following diagnoses?: none Exam - Constitutional Vitals: Temp Pulse Resp BP Pulse Ox 98.6 F 103 H 19 132/81 97 11/29/20 17:14 11/29/20 17:14 11/29/20 17:14 11/29/20 17:14 11/29/20 17:14 General appearance: Present: no acute distress, well-nourished - EENT Eyes: Present: PERRL ENT: hearing intact, clear oral mucosa - Neck Neck: Present: supple, normal ROM - Respiratory Respiratory effort: normal Respiratory: bilateral: CTA - Cardiovascular Heart Sounds: Present: S1 & S2. Absent: rub, click - Extremities Extremities: pulses symmetrical, No edema Peripheral Pulses: within normal limits - Abdominal General gastrointestinal: Present: soft, non-tender, non-distended, normal bowel sounds Male genitourinary: Present: normal - Integumentary Integumentary: Present: clear, warm, dry - Musculoskeletal Musculoskeletal: gait normal, strength equal bilaterally - Psychiatric Psychiatric: appropriate mood/affect, intact judgment & insight - Neurologic Neurologic: CNII-XII intact, moves all extremities Plan Activity: no restrictions Follow up with: PRIMARY CARE, [Primary Care Provider] - 3-5 Days Forms: AMA Form
== END 2020-11-29 22:25 | disposition left against medical advice (07) | DRG 871 ==
LOC: ED 10:25 → 3A 14:17
PROVIDERS: ADMIT Internal Medicine; ATTEND Internal Medicine
PROC: 4A033R1 Measurement of Arterial Saturation, Peripheral, Percutaneous Approach (ICD-10-PCS; principal; 2020-11-28)
DX: A41.9 Sepsis, unspecified organism (principal); J96.01 Acute respiratory failure with hypoxia; G92 Toxic encephalopathy; J69.0 Pneumonitis due to inhalation of food and vomit; F17.213 Nicotine dependence, cigarettes, with withdrawal; Z20.822 Contact with and (suspected) exposure to COVID-19; F10.20 Alcohol dependence, uncomplicated; F19.10 Other psychoactive substance abuse, uncomplicated; F31.9 Bipolar disorder, unspecified; F41.1 Generalized anxiety disorder; T50.991A Poisoning by other drugs, medicaments and biological substances, accidental (unintentional), initial encounter; Z79.899 Other long term (current) drug therapy; Y92.89 Other specified places as the place of occurrence of the external cause
CPT/HCPCS: 36415; 71045; 71275; 80048; 80053; 80307; 80320; 81001; 82140; 82550; 82728; 82803; 82947; 83615; 83880; 84145; 84484; 85007; 85025; 85379; 86140; 87040; 93005; 96365; 96367; 96375; G0378; G0480; J0456; J0696; J1170; J1644; J2060; J2920; J3411; J7030; Q9967; U0003